=== PATIENT | male | born 1960 | race Caucasian/White ===

== ENCOUNTER 2023-02-13 18:50 | Emergency (ER) | payer SELFPAY ==
[2023-02-13] MEDS ORDERED: Ketorolac 60 MG/2 ML SDV IM ONE (19:17)
[2023-02-13] MEDS ORDERED: Orphenadrine 100 MG Tab.ER PO ONE (19:17)
== END 2023-02-13 20:40 | disposition home or self-care (01) ==
LOC: JD.ED 18:50
DX: M54.50 Low back pain, unspecified (principal); I10 Essential (primary) hypertension; W00.9XXA Unspecified fall due to ice and snow, initial encounter
CPT/HCPCS: 71101; 72100; 96372; 99283; A9270; J1885